=== PATIENT | male | born 1955 | race Caucasian/White ===

== ENCOUNTER 2017-10-29 15:12 | Emergency (ER) | payer SELFPAY ==
[~2017-10-29] VITALS: Ht 177.8 cm; Wt 86.2 kg
--- NOTE | 2017-10-29 18:39 | ED MVC/FALL/TRAUMA COMPLAINT ---
History of Present Illness General Chief Complaint: Facial or Head Injury Stated Complaint: PT HAD A FALL AND HIT HIS FACE AND HEAD Source: patient Exam Limitations: no limitations Vital Signs & Intake/Output Vital Signs & Intake/Output ED Intake and Output 10/30 0000 10/29 1200 Intake Total 0 Output Total Balance 0 Intake, Oral 0 Patient 190 lb Weight Weight Reported by Patient Measurement Method Allergies Coded Allergies: No Known Allergies (10/29/17) Triage Note: PT TO ED S/P TRIP AND FALL OUTSIDE ONTO SIDE OF RIGHT SHOULDER AND RIGHT SIDE OF FACE, LAC NOTED TO R CHEEK, BRUISING TO RIGHT EYE, PT DENIES LOC, DENIES BLOOD THINNERS. Triage Nurses Notes Reviewed? yes Onset: Abrupt Duration: hour(s): (2), constant, continues in ED, getting worse Timing: single episode today Severity: moderate, severe Severity Numbers: 7 Injuries/Fall Location: head, face Method of Injury: fall Loss of Consciousness: no loss of consciousness No Modifying Factors: none HPI: 62-year-old male past medical history of coronary artery disease, [place] presents for evaluation of a fall. Patient states he was walking when he tripped on a elevated sidewalk causing the fall and hit the right side of his face on the ground. There is no loss of consciousness. Patient states he has a cut to the right cheek and swelling to the right inferior periorbital area. NO BLOOD THINNERS. HE WAS ABLE TO GET UP WITHOUT ASSISTANCE. NO CHEST PAIN DIZZINESS, SOB BEFORE THE FALL. HE REPORTS PAIN TO THE RT INFERIOR PERIROBITAL AREA AND A HEADACHE. NO N/V, CHANGES IN VISION. Past History Travel History Traveled to [place] past 21 day No Medical History Any Pertinent Medical History? see below for history Neurological: NONE EENT: NONE Cardiovascular: myocardial infarction Respiratory: NONE Gastrointestinal: NONE Hepatic: NONE Renal: NONE Musculoskeletal: NONE Psychiatric: NONE Endocrine: NONE Blood Disorders: NONE Cancer(s): NONE STEWARD/STEWARDESS BATH/Reproductive: NONE Surgical History Surgical History: non-contributory Psychosocial History Who do you live with Patient/Self What is your primary language Divehi Tobacco Use: Quit >30 days ago ETOH Use: denies use Illicit Drug Use: denies illicit drug use Family History Hx Contributory? No Review of Systems Review of Systems Constitutional: Reports: no symptoms. Eyes: Reports: no symptoms. Ears, Nose, Throat, Mouth: Reports: no symptoms. Respiratory: Reports: no symptoms. Cardiovascular: Reports: no symptoms. Gastrointestinal/Abdominal: Reports: no symptoms. Genitourinary: Reports: no symptoms. Musculoskeletal: Reports: no symptoms. Skin: Reports: see HPI (CONTUSION ). Neurological/Psychological: Reports: headache. All Other Systems: Reviewed and Negative Physical Exam Physical Exam General Appearance: well developed/nourished, no apparent distress, alert, awake Head: THERE IS A LARGE HEMATOMA TO THE RIGHT INFERIOR PERIORBITAL AREA. tHERE IS ALSO A 2 CM LINEAR VERTICAL LACERATION LOCATED IN THE RIGHT CYANOTIC AREA. nO B[place] TENDERNESS NO ACTIVE BLEEDING. nO EPISTAXIS NO SEPTAL HEMATOMA Eyes: Bilateral: normal appearance, PERRL, EOMI. Ears, Nose, Throat, Mouth: hearing grossly normal, moist mucous membrane, Tympanic normal Neck: normal inspection, supple, full range of motion, no midline tenderness Respiratory: normal breath sounds, chest non-tender, no respiratory distress, lungs clear Cardiovascular: regular rate/rhythm, normal peripheral pulses Peripheral Pulses: 2+ radial (R), 2+ radial (L) Gastrointestinal: soft, non-tender Back: normal inspection, normal range of motion, no vertebral tenderness Extremities: normal range of motion, NO BRUISING SWELLING OR ABRASIONS TO THE EXTREMITIES PATIENT IS ABLE TO WALK AND BEAR WEIGHT WITHOUT DIFFICULTY Neurologic/Psych: no motor/sensory deficits, awake, alert, oriented x 3, normal gait Skin: intact, normal color, warm/dry Core Measures ACS in differential dx? No CVA/TIA Diagnosis No Sepsis Present: No Sepsis Focused Exam Completed? No Progress Differential Diagnosis: C/T/L spine injury, ext injury, ICH, pelvis injury, spinal cord injury, CONTUSION, FRACTURE, SPRAIN, CONCUSSION Plan of Care: Orders Procedure Date/time Status URINE DRUG SCREEN FOR ER ONLY 10/29 1754 Active URINALYSIS 10/29 1754 Active TROPONIN LEVEL 10/29 1754 Complete COMPREHENSIVE METABOLIC PANEL 10/29 1754 Complete CBC WITHOUT DIFFERENTIAL 10/29 1754 Complete EKG 10/29 1754 Active Laboratory Tests 10/29/17 1826: Anion Gap 7, Estimated GFR > 60, BUN/Creatinine Ratio 15.6, Glucose 92, Calcium 8.6, Total Bilirubin 2.1 H, AST 44, ALT 57, Alkaline Phosphatase 52, Troponin I 0.02, Total Protein 7.2, Albumin 3.5, Globulin 3.7, Albumin/Globulin Ratio 0.9 L, CBC w Diff NO MAN DIFF REQ, RBC 3.94 L, MCV 95.8 H, MCH 32.1 H, MCHC 33.5, RDW 16.6 H, MPV 9.9, Gran % 71.7, Lymphocytes % 18.3 L, Monocytes % 7.0, Eosinophils % 2.8, Basophils % 0.2, Absolute Granulocytes 3.2, Absolute Lymphocytes 0.8 L, Absolute Monocytes 0.3, Absolute Eosinophils 0.1, Absolute Basophils 0 Patient seen evaluated. He is here after a mechanical fall with head strike. He has a hematoma to his right inferior periorbital area. He does not take blood thinners. He also has a laceration to the right cyanotic area. The area was cleaned with Betadine and sterile water. 1% lidocaine was used for local pain control. 4 5-0 nylon simple interrupted sutures were used for local pain control. Patient tolerated well. CT scans of the head Facial area and cervical spine were obtained. Also basic blood work EKG cardiac enzymes. CT scans and does not show any acute bleeds. Blood work SHOWS thrombocytopenia with a platelet count of 70. A review of previous labs from years ago does show thrombocytopenia at that time. Patient is unaware of current thrombocytopenia. Patient was instructed to avoid antiplatelet agents. Follow-up with primary care doctor for further evaluation and treatment. Continue to rest and apply ice Tylenol for pain. Discussed return precautions in detail. Patient agrees the plan. Diagnostic Imaging: Viewed by Me: Radiology Read. Discussed w/RAD: Radiology Read. Radiology Impression: PATIENT: JOSEPH HUGHES JR PRESENT AGE: 62 PATIENT ACCOUNT NO: [id number] : 55 LOCATION: [facility] ORDERING PHYSICIAN: Selvin VILLALOBOS SERVICE DATE: 10/29/17 EXAM TYPE: CAT - CT CERV SPINE WO IV CONTRAST; CT HEAD WO IV CONTRAST; CT MAXILLOFACIAL W/O CON EXAMINATION: CT HEAD WITHOUT CONTRAST CT FACIAL BONES WITHOUT CONTRAST CT CERVICAL SPINE WITHOUT CONTRAST CLINICAL INFORMATION: Fall, hit head and face. COMPARISON: None. TECHNIQUE: Multidetector CT imaging of the head, facial bones and cervical spine was performed without the use of intravenous contrast. Coronal and sagittal reformatted images were generated at the technologist workstation. DLP: 1852.69 mGy-cm. FINDINGS: CT head: There is no evidence of acute intracranial hemorrhage or territorial infarction. No abnormal mass-effect or midline shift is seen. Giles to white matter differentiation is well preserved. No extra-axial fluid collections are identified. The ventricles are normal in size. There is no abnormal attenuation within the brain parenchyma. There are no acute osseous findings. There are no large scalp contusions or hematomas. There is trace fluid at the right mastoid apex. The visualized paranasal sinuses are well aerated. There are degenerative changes at the bilateral temporomandibular joints. CT facial bones: There is no acute maxillofacial fracture. The mandible and mandibular condyles are intact. The pterygoid plates, zygomatic arches and lamina papyracea are intact. The bony orbital rims are intact. The nasal bones are intact. There is moderate soft tissue swelling overlying the right malar and periorbital regions consistent with soft tissue contusion. There is minimal mucoperiosteal thickening in the anterior ethmoid sinuses. The other paranasal sinuses are well-aerated. No air- fluid levels are seen. The nasal septum is essentially in the midline. There is a small left-sided bony nasal spur inferiorly and anteriorly. The ostiomeatal complexes are clear. The ethmoid roofs are slightly asymmetric, higher on the left. The carotid canals are covered by thin bone bilaterally. There are periapical lucencies around multiple teeth in the left mandible and around the roots of the right mandibular canine tooth. Surgical wires are seen in the regions of the mental foramina in the mandible bilaterally, which may be consistent with sequelae of prior posttraumatic fixation. There is fluid in the right mastoid air cells. The visualized middle ear cavities are well-aerated. The intraorbital structures are normal. There are degenerative changes of the temporomandibular joints. CT cervical spine: There is a dextroscoliosis in the upper thoracic region. There is multilevel narrowing of intervertebral disc height in the mid and lower cervical spine with marginal osteophytes. Vertebral body heights are maintained and no fractures are demonstrated. The lateral masses of C1 and C2 are normally aligned. The dens is intact. The atlantooccipital articulations are normal. The paravertebral structures are unremarkable. There are multifocal atheromatous calcifications. The left common carotid and brachiocephalic arteries appear to have a common origin, which is a normal variant. No pleural effusions or pneumothoraces are demonstrated. IMPRESSION: CT head: 1. There are no acute fractures or large scalp contusions. 2. There are no acute bleeds or territorial infarcts. CT maxillofacial: 1. There are no acute fractures. There is swelling over the right malar region, consistent with soft tissue contusion. 2. There is fluid in the right mastoid air cells. 3. There are degenerative changes in the bilateral temporomandibular joints. CT cervical spine: 1. There are no acute fractures or subluxations. 2. There are multilevel spondylitic changes as described above. DICTATED BY: Tariq Handley MD DATE/TIME DICTATED:10/29/171901 REPRODUCTIVE ENDOCRINOLOGIST:PENNY DATE/ TIME TRANSCRIBED:10/29/171901 CONFIDENTIAL, DO NOT COPY WITHOUT APPROPRIATE AUTHORIZATION. <Electronically signed in Other Vendor System> SIGNED BY: Tariq Handley MD 10/29/171999 Initial ED EKG: nonspecific ST T wave chg, SINUS RHYTHM, LEFT ATRIAL NORMALITY, qtc 486 Departure Departure Disposition: HOME OR SELF CARE Condition: Stable Clinical Impression Primary Impression: Contusion of face Qualifiers: Encounter type: initial encounter Qualified Code: S00.83XA - Contusion of other part of head, initial encounter Secondary Impressions: Laceration Referrals: Patient Has No Primary Care Dr (PCP/Family) Additional Instructions: REST, AVOID EXCESSIVE PHYSICAL ACTIVITY. TYLENOL/IBUPROFEN NEEDED FOR PAIN. KEEP THE LACERATION CLEAN AND DRY. THE SUTURES NEED TO COME OUT IN 5-7 DAYS. YOU SHOULD HAVE A FOLLOW UP WITH YOUR PRIMARY CARE DOCTOR TO REVIEW ALL RESULTS OF TODAYS VISIT. RETURN TO THE EMERGENCY DEPARTMENT SOONER WITH ANY CONCERNS. Departure Forms: Customer Survey General Discharge Information Procedures Laceration/Wound Repair Laceration/Wound Repair: Wound Location: face Wound's Depth, Shape: linear, subcutaneous Wound Length (cm): 2 Wound Explored: clean, no foreign body removed, irrigated extensively Irrigated w/ Saline (ccs): 300 Betadine Prep? Yes Anesthesia: 1% lidocaine Volume Anesthetic (ccs): 4 Wound Debrided: minimal Wound Repaired With: sutures Suture Size/Type: 5:0, nylon Number of Sutures: 4 Layer Closure? No Sterile Dressing Applied: Yes Tetanus Status: up to date
[2017-10-29 18:56] LABS: ABSOLUTE BASOPHIL COUNT 0 /CUMM (0.0-0.2); ABSOLUTE EOSINOPHIL COUNT 0.1 /CUMM (0.0-0.7); ABSOLUTE GRANULOCYTE CT 3.2 /CUMM (1.4-6.5); ABSOLUTE LYMPH COUNT 0.8 /CUMM (1.2-3.4); ABSOLUTE MONOCYTE COUNT 0.3 /CUMM (0.10-0.60); BASOPHIL % 0.2 % (0.0-2.0); EOSINOPHIL % 2.8 % (0-5); GRANULOCYTE % 71.7 % (42.2-75.2); HEMATOCRIT 37.8 % (42-52); MEAN CORPUSCULAR HGB 32.1 PG (27.0-31.0); MEAN CORPUSCULAR HGB CONC 33.5 G/DL (33.0-37.0); MEAN CORPUSCULAR VOLUME 95.8 FL (80.0-94.0); MEAN PLATELET VOLUME 9.9 FL (7.4-10.4); PLATELET COUNT 68 /CUMM (130-400); RBC DISTRIBUTION WIDTH 16.6 % (11.5-14.5); RED BLOOD CELL CT 3.94 /CUMM (4.70-6.10); WHITE BLOOD CELL COUNT 4.5 /CUMM (4.8-10.8)
--- NOTE | 2017-10-29 20:00 | CT SCAN REPORT ---
EXAMINATION: CT HEAD WITHOUT CONTRAST CT FACIAL BONES WITHOUT CONTRAST CT CERVICAL SPINE WITHOUT CONTRAST CLINICAL INFORMATION: Fall, hit head and face. COMPARISON: None. TECHNIQUE: Multidetector CT imaging of the head, facial bones and cervical spine was performed without the use of intravenous contrast. Coronal and sagittal reformatted images were generated at the technologist workstation. DLP: 1852.69 mGy-cm. FINDINGS: CT head: There is no evidence of acute intracranial hemorrhage or territorial infarction. No abnormal mass-effect or midline shift is seen. Giles to white matter differentiation is well preserved. No extra-axial fluid collections are identified. The ventricles are normal in size. There is no abnormal attenuation within the brain parenchyma. There are no acute osseous findings. There are no large scalp contusions or hematomas. There is trace fluid at the right mastoid apex. The visualized paranasal sinuses are well aerated. There are degenerative changes at the bilateral temporomandibular joints. CT facial bones: There is no acute maxillofacial fracture. The mandible and mandibular condyles are intact. The pterygoid plates, zygomatic arches and lamina papyracea are intact. The bony orbital rims are intact. The nasal bones are intact. There is moderate soft tissue swelling overlying the right malar and periorbital regions consistent with soft tissue contusion. There is minimal mucoperiosteal thickening in the anterior ethmoid sinuses. The other paranasal sinuses are well-aerated. No air-fluid levels are seen. The nasal septum is essentially in the midline. There is a small left-sided bony nasal spur inferiorly and anteriorly. The ostiomeatal complexes are clear. The ethmoid roofs are slightly asymmetric, higher on the left. The carotid canals are covered by thin bone bilaterally. There are periapical lucencies around multiple teeth in the left mandible and around the roots of the right mandibular canine tooth. Surgical wires are seen in the regions of the mental foramina in the mandible bilaterally, which may be consistent with sequelae of prior posttraumatic fixation. There is fluid in the right mastoid air cells. The visualized middle ear cavities are well-aerated. The intraorbital structures are normal. There are degenerative changes of the temporomandibular joints. CT cervical spine: There is a dextroscoliosis in the upper thoracic region. There is multilevel narrowing of intervertebral disc height in the mid and lower cervical spine with marginal osteophytes. Vertebral body heights are maintained and no fractures are demonstrated. The lateral masses of C1 and C2 are normally aligned. The dens is intact. The atlantooccipital articulations are normal. The paravertebral structures are unremarkable. There are multifocal atheromatous calcifications. The left common carotid and brachiocephalic arteries appear to have a common origin, which is a normal variant. No pleural effusions or pneumothoraces are demonstrated. IMPRESSION: CT head: 1. There are no acute fractures or large scalp contusions. 2. There are no acute bleeds or territorial infarcts. CT maxillofacial: 1. There are no acute fractures. There is swelling over the right malar region, consistent with soft tissue contusion. 2. There is fluid in the right mastoid air cells. 3. There are degenerative changes in the bilateral temporomandibular joints. CT cervical spine: 1. There are no acute fractures or subluxations. 2. There are multilevel spondylitic changes as described above.
[2017-10-29 20:08] VITALS: BP 158/96
== END 2017-10-29 20:09 ==
LOC: ERH 15:12
PROVIDERS: Physician Assistant Medical
DX: S01.411A Laceration without foreign body of right cheek and temporomandibular area, initial encounter (principal); S00.83XA Contusion of other part of head, initial encounter; W19.XXXA Unspecified fall, initial encounter; Y92.89 Other specified places as the place of occurrence of the external cause; Y93.01 Activity, walking, marching and hiking
CPT/HCPCS: 80307; 81001; 90471; 93005; 93010; J2001